=== PATIENT | female | born 1985 | race Caucasian/White ===

== ENCOUNTER 2019-08-20 10:21 | Emergency (ER) | payer OTHER ==
[~2019-08-20] VITALS: Ht 170.2 cm; Wt 95.3 kg
[2019-08-20] MEDS ORDERED: GUAIFEN-CODEINE10 ML PO (12:13)
[2019-08-20 12:43] VITALS: BP 116/81
== END 2019-08-20 12:43 | disposition home or self-care (01) ==
LOC: ER 10:21
DX: J06.9 Acute upper respiratory infection, unspecified (principal); Z88.0 Allergy status to penicillin